=== PATIENT | female | born 1965 | race Caucasian/White ===

== ENCOUNTER 2023-09-26 23:46 | Emergency (ER) | payer MEDICARE, OTHER ==
[~2023-09-26] VITALS: Ht 152.4 cm; Wt 56.8 kg
[2023-09-27] MEDS: normal saline 1000ML IV soln IV ONE (01:47)
[2023-09-27 02:00] LABS: BASOPHILS # (AUTO) 0.1 X10'3 (0-0.2); BASOPHILS % (AUTO) 1.5 % (0-1); EOSINOPHILS % (AUTO) 0.1 % (0-6); HEMATOCRIT 36.5 % (35.0-45.0); LYMPHOCYTES # (AUTO) 1.3 X10'3 (1.1-4.8); LYMPHOCYTES % (AUTO) 15.9 % (21-51); MEAN CORPUSCULAR HEMOGLOBIN 30.3 PG (27.0-31.0); MEAN CORPUSCULAR HGB CONC 32.8 g/dL (33.0-36.5); MEAN CORPUSCULAR VOLUME 92.3 FL (78-98); MEAN PLATELET VOLUME 7.9 FL (7.4-10.4); MONOCYTES # (AUTO) 0.9 X10'3 (0-0.9); MONOCYTES % (AUTO) 11.4 % (2-12); NEUTROPHILS # (AUTO) 5.7 X10'3 (1.8-7.7); NEUTROPHILS % (AUTO) 71.1 % (42-75); PLATELET COUNT 257 X10'3 (140-440); RED BLOOD COUNT 3.96 X10'6 (4.20-5.60); RED CELL DISTRIBUTION WIDTH 14.7 % (11.5-14.5)
[2023-09-27] MEDS ORDERED: [UNRECOGNIZED DRUG - CODE] (02:25)
[2023-09-27] MEDS ORDERED: DAPS25TA2 PO (02:25)
[2023-09-27] MEDS ORDERED: FLUC100T PO (02:25)
[2023-09-27] MEDS ORDERED: FAMO20TA8 PO (02:25)
[2023-09-27] MEDS ORDERED: ACET-3209 PO (02:25)
[2023-09-27] MEDS ORDERED: CHOL20002 PO (02:25)
[2023-09-27] MEDS ORDERED: TRAM50TA2 PO (02:25)
[2023-09-27] MEDS ORDERED: MULT-1085 PO (02:25)
[2023-09-27] MEDS ORDERED: CARV-50 PO (02:25)
[2023-09-27] MEDS ORDERED: POLY17PO10 PO (02:25)
[2023-09-27] MEDS ORDERED: PRED1TAB PO (02:25)
[2023-09-27] MEDS ORDERED: TACR0.5C20 PO (02:25)
[2023-09-27] MEDS ORDERED: TACR1CAP24 PO (02:25)
[2023-09-27] MEDS ORDERED: FURO-150 PO (02:25)
[2023-09-27] MEDS ORDERED: CLON0.1T PO (02:25)
[2023-09-27] MEDS ORDERED: MAGN400C PO (02:25)
[2023-09-27] MEDS ORDERED: MYCO250C46 PO (02:25)
[2023-09-27] MEDS ORDERED: [UNRECOGNIZED DRUG - CODE] PO (02:25)
[2023-09-27] MEDS ORDERED: ESCI5TAB PO (02:25)
[2023-09-27] MEDS ORDERED: AZIT-164 PO (02:25)
[2023-09-27] MEDS ORDERED: PRED5TAB PO (02:25)
[2023-09-27] MEDS ORDERED: MELA1TAB16 PO (02:25)
[2023-09-27] MEDS ORDERED: ATRIN INH (02:25)
[2023-09-27] MEDS ORDERED: OSC500T PO (02:25)
[2023-09-27] MEDS ORDERED: ALEN70TA60 PO (02:25)
[2023-09-27] MEDS: ondansetron 4mg rapidly disintigrating tab PO ONE (02:26)
[2023-09-27 03:01] LABS: ALANINE AMINOTRANSFERASE 18 U/L (12-78); ALBUMIN 4.5 G/DL (3.4-5.0); ALBUMIN/GLOBULIN RATIO 1.4 (1.1-1.5); ALKALINE PHOSPHATASE 310 IU/L (46-116); ANION GAP 16 (8-16); ASPARTATE AMINO TRANSFERASE 12 U/L (10-37); BILIRUBIN,DIRECT 0.1 MG/DL (0-0.3); BILIRUBIN,TOTAL 0.5 MG/DL (0.1-1.0); BLOOD UREA NITROGEN 26 MG/DL (7-18); BUN/CREATININE RATIO 16.9 (10.0-20.0); CALCIUM 11.1 MG/DL (8.5-10.1); CHLORIDE 100 MMOL/L (99-107); CREATININE 1.54 MG/DL (0.40-0.90); GLUCOSE 90 MG/DL (70-104); LIPASE 43 U/L (16-77); MAGNESIUM 1.4 MG/DL (1.5-2.4); POTASSIUM 3.8 MMOL/L (3.5-5.1); SODIUM 139 MMOL/L (135-145); TOTAL PROTEIN 7.8 G/DL (6.4-8.2); eCRCL 29 ML/MIN; eGFR 35 ML/MIN
[2023-09-27] MEDS ORDERED: ONDA-243 PO (03:11)
[2023-09-27] MEDS: magnesium sulf-water 2g/50mL 50 ML IV ONE (03:18)
[2023-09-27] MEDS: normal saline 1000ML IV soln IVB ONE (03:19)
[2023-09-27 03:31] LABS: BILIRUBIN,URINE SMALL (Neg); CLARITY,URINE SLIGHTLY CLOUDY (Clear); COLOR,URINE YELLOW (Yellow); GLUCOSE, URINE NEGATIVE (Neg); KETONES,URINE 40 mg/dl (Neg); LEUKOCYTE ESTERASE ,URINE NEGATIVE (Neg); NITRITES, URINE NEGATIVE (Neg); OCCULT BLOOD,URINE TRACE-INTACT (Neg); PH,URINE 6.5 (4.8-8.0); PROTEIN,URINE NEGATIVE (Neg); UROBILINOGEN,URINE 0.2 E.U/dL (0.2-1.0)
[2023-09-27 03:35] LABS: HYPERSEGMENTED NEUTROPHILS FEW; PLATELET ESTIMATE NORMAL; TOTAL CELLS COUNTED 100
[2023-09-27 03:40] LABS: UA COLLECTION TYPE CLN CATCH MIDSTREAM
[2023-09-27 03:41] LABS: WBC,URINE 0-4 /HPF (0-4)
[2023-09-27 03:42] LABS: AMORPHOUS PHOSPHATES 4+; BACTERIA,URINE 1+ /HPF (Neg); MUCUS STRANDS FEW /LPF (Neg); RBC,URINE 0-2 /HPF (0-2); SQUAMOUS EPITHELIAL CELL,UR FEW /LPF (FEW)
[2023-09-27] MEDS: ondansetron/PF 4mg/2ml inj IV ONE (05:09)
[2023-09-27 05:54] VITALS: BP 167/98; PULSE 90; RESP 18; TEMP 98.9; O2SAT 95
== END 2023-09-27 05:56 | disposition home or self-care (01) ==
LOC: ER 23:47
DX: R11.10 Vomiting, unspecified (principal); E86.0 Dehydration; E83.42 Hypomagnesemia; Z94.2 Lung transplant status; I10 Essential (primary) hypertension; Z79.899 Other long term (current) drug therapy; Z79.2 Long term (current) use of antibiotics; Z98.890 Other specified postprocedural states
CPT/HCPCS: 36415; 80048; 80076; 81001; 83690; 83735; 84145; 85007; 85025; 96365; 96366; 96375; 99284; J2405; J7030